=== PATIENT | male | born 1990 | race African-American/Black ===

== ENCOUNTER 2017-02-04 02:15 | Emergency (ER) | payer SELFPAY ==
[2017-02-04] MEDS ORDERED: PHARMACY KEY 1 EACH EACH MC ONE (02:32)
[2017-02-04] MEDS ORDERED: TETRACAINE HCL/PF 5% OPTH SOL OP ONE (02:33)
--- NOTE | 2017-02-04 02:35 | ED Physician Documentation ---
Ear Complaints - HISTORIAN Historian: patient - HPI Stated Complaint: bug in ear Chief Complaint: Ear Complaints Additional Information: awoke from sleep with severe pain from movement of insect Timing: still present Location of Pain: L ear Severity: severe Associated Symptoms: sharp pain, foreign body Further Comments: no - ROS CONST: no problems CVS/RESP: none GI/: denies: black stools, nausea, vomiting MS/SKIN/LYMPH: none NEURO/PSYCH: denies: weakness All Systems -: No - PAST HX Past History: none Immunizations: UTD - SOCIAL HX Smoking History: non-smoker Alcohol Use: none Drug Use: none - FAMILY HX Family History: No - REVIEWED ASSESSMENTS Nursing Assessment Reviewed: Yes Vitals Reviewed: Yes Procedures Progress: removal of valenzuela by alligator yvonne. EAC flushed with warm water to remove remaining debris ED Results Lab/Radiology - Orders Orders: ED Orders Category Date Time Status Pharmacy [facility] 02/04/17 02:32 Discontinued 1 each [facility] .STK-MED ONE Tetracaine HCl/Pf [Pontocaine 5% Opth] Med 02/04/17 02:33 Once 2 drop OP NOW ONE Ear Complaint Physical Exam - EXAM General Appearance: severe distress Ear: auricle nml, material in canal, foreign body, insect Mouth/Throat: lips nml Nose: nml inspection Head/Neck: neck nml inspection Eye: eyes nml inspection Skin: nml color Neuro/Psych: oriented x3, mood/affect nml Discharge Clincal Impression: Foreign body of ear, left Qualifiers: Encounter type: initial encounter Qualified Code(s): T16.2XXA - Foreign body in left ear, initial encounter Condition: Good Disposition: 01 HOME, SELF-CARE Decision to Admit: NO Date of Decison to Admit: 02/04/17 Decision Time: 02:41
[2017-02-04 03:17] VITALS: BP 142/78
[2017-02-04] MEDS ORDERED: PROPARACAINE HCL 0.5% OPTH OP ONE (03:50)
== END 2017-02-04 02:45 | disposition home or self-care (01) ==
LOC: ED 02:15
DX: T16.2XXA Foreign body in left ear, initial encounter (principal); X58.XXXA Exposure to other specified factors, initial encounter; Y93.9 Activity, unspecified; Y99.9 Unspecified external cause status
CPT/HCPCS: 69200; 99283; A9270-GY

== ENCOUNTER 2017-08-25 11:46 | Outpatient (CLI) | payer OTHER ==
--- NOTE | 2017-08-25 15:00 | Diagnostic Imaging Report ---
CORNELIUS GOLDEN [facility] [address] [facility] [address] [address] Report Submission Date: Aug 25, 2017 12:47:19 PM [employer] Patient Study Name: KILLIAN FAIRBANKS Date: Aug 25, 2017 11:54:41 AM [employer] Modality Type: CR Gender: M Description: LOWER EXTREMITY : 90 Institution: [facility] Physician: CORNELIUS GOLDEN Examination: Plain film ankle History: Ankle discomfort. Injury Findings: 3 views of the ankle demonstrates normal cortical margins. No fracture or dislocation. Talar dome is intact. No soft tissue swelling. No joint effusion. Impression: No acute osseous process. Electronically signed on Aug 25, 2017 12:47:19 PM [employer] by: Jose HENRIQUEZ
== END 2017-08-25 11:47 ==
LOC: RAD 11:46
PROVIDERS: ATTEND Family Medicine
DX: M25.572 Pain in left ankle and joints of left foot (principal)
CPT/HCPCS: 73610